=== PATIENT | female | born 1975 | race Caucasian/White ===

== ENCOUNTER 2020-07-14 08:00 | Outpatient (CLI) | payer OTHER ==
--- NOTE | 2020-07-14 14:13 | XRAY Report ---
PROCEDURE: Knee 3 View LT INDICATIONS: STRAIN OF LEFT LEG TECHNIQUE: 4 views of the left knee(s) were acquired. COMPARISON: None. FINDINGS: Bones: No fractures or dislocations. No suspicious bony lesions. Mild joint space narrowing is see n on the frontal view, at the patellofemoral joint left lateral facet joint space narrowing is modera tely severe. Dominant Soft tissues: No joint effusion. No suspicious soft tissue calcifications. IMPRESSION: There is mild narrowing of the medial and lateral compartments on the frontal view, cons istent with mild degenerative osteoarthritis. Asymmetric lateral facet patellofemoral joint space adalberto rowing is moderately severe, and no trauma is found. Reviewed by: Hugo Rodriguez MD on 07/14/2020 2:11 PM PDT Approved by: Hugo Rodriguez MD on 07/14/2020 2:11 PM PDT Station ID: [id number]
== END 2020-07-14 23:59 | disposition home or self-care (01) ==
LOC: DI.S 08:00
PROVIDERS: ATTEND Nurse Practitioner
DX: M25.862 Other specified joint disorders, left knee (principal)